=== PATIENT | male | born 1960 | race Caucasian/White ===

== ENCOUNTER → 2021-11-17 10:41 | Outpatient (CLI) | payer OTHER, SELFPAY ==
--- NOTE | 2021-11-17 | DI.RAD.S_ITS ---
PROCEDURE: [place] WRIST INJECTION MR/CT RT INDICATIONS: SCAPHOLUNATE LIGAMENT AND GANGLION CYST COMPARISON: None. TECHNIQUE: After informed consent had been obtained, the wrist was examined fluoroscopically, and a site chosen for injection of the radiocarpal compartment from a dorsal approach. Skin was prepped and draped in a sterile fashion and 1% lidocaine infiltrated from the skin down to the articular surface. A hypodermic needle was then introduced into the articular space and a modest amount of contrast medium was instilled confirming intra-articular needle tip placement. This was followed by approximately 4 mL of a dilute gadolinium solution. Needle was removed and dressing was applied. The patient experienced no complications throughout the procedure and left the fluoroscopic suite in no apparent distress. FINDINGS: A single fluoroscopic spot image demonstrates intra-articular location to injected iodinated contrast. IMPRESSION: Successful fluoroscopic-guided administration of dilute Gadolinium solution for wrist MR arthrogram. Dictated by: Janelle Pina MD, PhD on 11/17/2021 at 12:01 Approved by: Janelle Pina MD, PhD on 11/17/2021 at 12:02
--- NOTE | 2021-11-17 | DI.MRI.S_ITS ---
PROCEDURE: MR WRIST RT W CON INDICATIONS: SCAPHOLUNATE LIGAMENT AND GANGLION CYST TECHNIQUE: After the administration of 3-4 mL of dilute intra-articular Gadolinium contrast into the radiocarpal compartment, coronal T1 spin echo with fat saturation and T2 fast spin echo with fat saturation, axial T1 spin echo and T2 fast spin echo with fat saturation, sagittal T1 spin echo with and without fat saturation through the wrist. COMPARISON: [facility], , [place] WRIST INJECTION MR/CT RT, 11/17/2021, 11:21. FINDINGS: Image quality: Excellent. 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 Mild edema involving proximal carpal row and distal radius and ulnar is seen most consistent with changes related to osteoarthritis. No fracture or dislocation. No evidence of osteonecrosis. Carpal ligaments: There is sprain/low to moderate grade partial-thickness tear involving volar and central components of scapholunate ligament the lunotriquetral ligament is intact. No contrast extending to mid carpal row is noted. The radioscaphocapitate and radiolunotriquetral ligaments appear intact. The arcuate ligament and short radiolunate ligament also appear normal. The dorsal intercarpal and radiotriquetral ligaments appear intact. On sagittal images, the pisohamate ligament appears intact. Triangular fibrocartilage complex: Focal perforation involving triangular fibrocartilage near its radial insertion is seen with gadolinium extravasation into the distal radioulnar joint. The adjacent meniscal homolog appears normal. The ulnar collateral ligament appears intact. The extensor carpi ulnaris tendon is normal in location and morphology. Tendons and soft tissues: The carpal tunnel structures appear normal, including the median nerve. The ulnar nerve appears normal within Guyon's canal. All six extensor tendon compartments demonstrate normal morphology, without pathologic tendon sheath fluid. No soft tissue ganglion cysts. IMPRESSION: 1. Osteoarthritic changes throughout wrist joints as above. No fracture or dislocation. No evidence of osteonecrosis. No suspicious intraosseous lesion. 2. Sprain/moderate grade partial-thickness tear involving volar and central components of scapholunate ligament. No full-thickness ligament rupture. Lunotriquetral ligament is intact. 3. Extensor and flexor tendons are grossly intact. 4. Focal perforation of triangular fibrocartilage near its radial insertion with gadolinium contrast extravasating into distal radial ulnar joint. 5. No discrete ganglion cyst is seen. Dictated by: Nick Lan M.D. on 11/17/2021 at 15:33 Approved by: Nick Lan M.D. on 11/17/2021 at 16:18
== END ==
PROVIDERS: PCP Family Medicine; Referring Provider Orthopaedic Surgery; Visit Provider Orthopaedic Surgery
DX: S63.511A Sprain of carpal joint of right wrist, initial encounter (principal); M67.431 Ganglion, right wrist; M19.031 Primary osteoarthritis, right wrist
CPT/HCPCS: 20605; 73222; 77002

== ENCOUNTER → 2023-01-19 15:32 | Outpatient (CLI) | payer OTHER, SELFPAY ==
--- NOTE | 2023-01-19 | DI.CT.S_ITS ---
PROCEDURE: CT CHEST WO CON INDICATIONS: Lung infiltrate TECHNIQUE: Noncontrast 5 mm thick sections acquired from the pulmonary apices to the posterior costophrenic angles. 1 mm lung window, 5 mm thick coronal and sagittal and 7 mm axial MIP reformats were then acquired. For radiation dose reduction, the following was used: automated exposure control, adjustment of mA and/or kV according to patient size. COMPARISON: [facility], [place], XR CHEST 1 VIEW, 01/04/2023, 12:39. FINDINGS: Image quality: Excellent. Lungs and pleura: No acute air space opacities. No pleural effusions or pneumothorax. Central and peripheral airways are patent and normal in caliber. Mediastinum: Heart size is normal. No pericardial effusion. No mediastinal adenopathy by size criteria. Thoracic aorta and central pulmonary arteries are normal in size. Esophagus is normal in caliber. No hiatal hernia. Three-vessel coronary calcifications. Bones and chest wall: No suspicious bony lesions. No vertebral body compression fractures. No axillary or supraclavicular adenopathy by size criteria. Thyroid gland is unremarkable . Abdomen: Gallbladder sludge versus small stones. No wall thickening or pericholecystic edema to suggest acute cholecystitis. IMPRESSION: No consolidation or infiltrate corresponding to the comparison radiograph. Marked coronary artery calcifications for age. Consider cardiology referral. Dictated by: Isreal Reyes M.D. on 01/19/2023 at 17:32 Approved by: Isreal Reyes M.D. on 01/19/2023 at 17:34
== END ==
PROVIDERS: PCP Family Medicine; Referring Provider Family Medicine; Visit Provider Family Medicine
DX: R91.8 Other nonspecific abnormal finding of lung field (principal); I25.10 Atherosclerotic heart disease of native coronary artery without angina pectoris
CPT/HCPCS: 71250